=== PATIENT | female | born 1995 | race Hispanic/Latino ===

== ENCOUNTER 2019-08-06 22:46 | Emergency (ER) | payer SELFPAY ==
[2019-08-06] MEDS ORDERED: SODIUM CHLORIDE 0.9% 1000ML 1,000 ML IVS ONE (22:49)
--- NOTE | 2019-08-06 23:04 | ED.PDOC ---
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 Pt says she was on the toilet when it happened. She denies CP, SOB, palpitations. She denies cough, SOB. She denies N/V/D. She says her last period was ~3 months ago. She says she had Implanon placed approximately 1 month ago, but couldn't say exactly who placed it. Pt denies abd/pelvic pain. Pt says she's never had an episode like this before. Pt denies CAMARA. Pt denies any injuries related to her syncopal episode. Timing/Duration: momentarily Severity: moderate Improving Factors: rest Worsening Factors: nothing Associated Symptoms: denies symptoms Allergies/Adverse Reactions: Allergies NO KNOWN ALLERGY Allergy (Verified 08/06/19 23:05) Review of Systems - Review of Systems Constitutional: States: weakness. Denies: chills, fever EENTM: States: no symptoms reported Respiratory: States: no symptoms reported Cardiology: States: no symptoms reported Gastrointestinal/Abdominal: States: no symptoms reported. Denies: abdominal pain, constipation, diarrhea, nausea, vomiting Genitourinary: States: see HPI, other - vaginal bleeding. Denies: dysuria, frequency, hematuria Musculoskeletal: States: no symptoms reported Skin: States: no symptoms reported Neurological: States: no symptoms reported Family Medical History - Family History Mother Family History: Unknown Physical Exam - Physical Exam General Appearance: Alert, Obvious distress - mild, Ill Appearing, Well Developed, Well Groomed, Well Hydrated Ears, Nose, Throat: normal ENT inspection Neck: non-tender, full range of motion, supple, normal inspection Respiratory: chest non-tender, lungs clear, normal breath sounds, no respiratory distress Cardiovascular/Chest: normal peripheral pulses, regular rate, rhythm, no edema, no gallop, no JVD, no murmur Gastrointestinal/Abdominal: normal bowel sounds, non tender, soft, no organomegaly, no pulsatile mass Neurologic: alert, normal mood/affect, oriented x 3 Skin Exam: normal color Progress - Progress Progress: 08/06/19 23:15 Pt now fully awake. She feels much better. She again reported no cramping, just heavy bleeding when she sat down to urinate. She also hit the left side of her scalp on the corner of the counter after she passed out. Pt has left sided CAMARA, but no photophobia or focal neuro signs of symptoms. Pt requesting something for pain, will order Tylenol. 08/07/19 00:06 Pt now says she had elective chemical Ab about mid May. About 2 weeks after that she had US which was-, then had Implanon placed. Pt is pretty sure elective Ab was successful because she saw what looked like a sac. Pt has no c/o abd pain, and has no abd ttp, so ectopic not obvious at this time (and sono not in house at the time). I stressed need for f/u within next week. 08/07/19 00:10 Laboratory Tests 08/06/19 08/06/19 08/06/19 22:52 22:52 22:52 WBC 9.7 RBC 4.15 L Hgb 12.9 Hct 38.0 MCV 91.6 MCH 31.0 MCHC 33.8 RDW 13.1 Plt Count 271 MPV 10.0 Absolute Neuts (auto) 4.10 Absolute Lymphs (auto) 4.80 H Absolute Monos (auto) 0.60 Absolute Eos (auto) 0.10 Absolute Basos (auto) 0.10 Neutrophils % 42.1 Lymphocytes % 49.3 Monocytes % 6.4 Eosinophils % 1.4 Basophils % 0.8 Sodium 139 Potassium 3.1 L Chloride 110 Carbon Dioxide 22 Anion Gap 10.1 L BUN 16 Creatinine 0.67 BUN/Creatinine Ratio 23.9 H Random Glucose 134 H Serum Osmolality 280.7 Calcium 9.3 Total Bilirubin 0.7 AST 29 ALT 14 Alkaline Phosphatase 56 Serum Total Protein 7.9 Albumin 4.5 Globulin 3.4 Albumin/Globulin Ratio 1.3 Serum HCG, Qual Positive Vital Signs 08/06/19 08/06/19 22:49 23:47 Temperature 97.6 F Pulse Rate [ 102 H 80 left] Respiratory 16 16 Rate Blood Pressure 109/81 116/73 [left arm] O2 Sat by Pulse 99 99 Oximetry 08/07/19 06:50 Vital Signs - 8 hr 08/06/19 08/07/19 23:47 00:15 Pulse Rate [ 80 80 left] Respiratory 16 16 Rate Blood Pressure 116/73 116/73 [left arm] O2 Sat by Pulse 99 99 Oximetry - EKG/XRAY/CT EKG: Sinus, no ST T wave changes Comments: Rate 66bpm, nl intervals, nl axis Departure - Departure Clinical Impression: Vaginal bleeding, Positive test, Dehydration Time of Disposition: 00:10 Disposition: Discharge to Home or Self Care Condition: Good Departure Forms: ED Discharge - Pt. Copy, Patient Portal Self Enrollment Diet: resume usual diet Activity: increase activity as tolerated
[2019-08-06] MEDS ORDERED: ACETAMINOPHEN 500 MG TAB PO ONE (23:15)
[2019-08-06 23:29] VITALS: TEMP 97.6; O2SAT 99
[2019-08-06 23:52] VITALS: BP 116/73
== END 2019-08-07 00:16 | disposition home or self-care (01) ==
LOC: EDBD 22:46 → ER 22:46
DX: N93.9 Abnormal uterine and vaginal bleeding, unspecified (principal); R55 Syncope and collapse; E86.0 Dehydration; R51 Headache; Z32.01 Encounter for pregnancy test, result positive
CPT/HCPCS: 80053; 84702; 84703; 85025; 93005; J7030